=== PATIENT | female | born 2000 | race Caucasian/White ===

== ENCOUNTER 2018-08-21 12:02 | Emergency (ER) | payer OTHER, SELFPAY ==
[2018-08-21 12:07] VITALS: BP 139/94; PULSE 95; RESP 18; TEMP 36.4; O2SAT 100; BMI 27.4
[2018-08-21 13:05] LABS: INR 0.9 (0.9-1.3); Prothrombin Time 10.7 SECONDS (10.1-12.7)
[2018-08-21 13:08] LABS: PTT Partial Thromboplastin Tim 28 SECONDS (26.4-36.2)
[2018-08-21 13:09] LABS: Alanine Aminotransferase 25 IU/L (9-52); Albumin 4.9 g/dL (3.5-5.0); Albumin Globulin Ratio 1.5 (1.0-2.8); Alkaline Phosphatase 73 U/L (38-126); Aspartate Aminotransferase 45 IU/L (14-36); BUN Creatinine Ratio 16.7 (6-22); Bilirubin Total 1.1 mg/dL (0.2-1.3); Blood Urea Nitrogen 10 mg/dL (7-17); Calcium 9.3 mg/dL (8.4-10.2); Carbon Dioxide 24 mmol/L (22-32); Chloride 104 mmol/L (98-107); Estimated Glomerular Filt Rate > 60.0 mL/min (>60); Globulin 3.3 g/dL (1.7-4.1); Glucose 98 mg/dL (70-100); HEMOLYSIS 18 (0-50); Potassium 3.9 mmol/L (3.4-5.1); Sodium 141 mmol/L (137-145); Total Protein 8.2 g/dL (6.3-8.2)
[2018-08-21 13:18] LABS: Add Manual Diff / Slide Review NO; Basophils Absolute Auto 0 /uL (0-100); Basophils Percent Auto 0.3 % (0-2); Eosinophils Absolute Auto 0 /uL (0-450); Eosinophils Percent Auto 0.7 % (2-4); Hematocrit 44.5 % (36-46); Hemoglobin 15.3 g/dL (12.0-16.0); Lymphocytes Absolute Auto 1000 /uL (1100-4500); Lymphocytes Percent Auto 17.2 % (25-40); Mean Corpuscular HGB Conc 34.5 % (30-36); Mean Corpuscular Hemoglobin 30.4 PG (26-34); Mean Corpuscular Volume 88.3 fL (80-100); Monocytes Absolute Auto 300 /uL (0-900); Monocytes Percent Auto 5.9 % (3-14); Neutrophils Absolute Auto 4400 /uL (1500-7000); Neutrophils Percent Auto 75.9 % (50-75); Platelet Count 225 X10^3/uL (150-400); Red Blood Cell Count 5.04 X10^6/uL (4.0-5.2); Red Cell Distribution Width 13.2 % (11.6-14.8); White Blood Cell Count 5.8 X10^3/uL (4.5-11.0)
[2018-08-21 13:35] VITALS: BP 139/80; PULSE 86; RESP 20; O2SAT 97
[2018-08-21 13:43] LABS: RBC Urine None Seen (0-5/HPF)
[2018-08-21 13:45] LABS: Bilirubin Urine UA 1+ (NEGATIVE); Color Urine UA YELLOW; Glucose Urine UA NEGATIVE (Negative); Ketones Urine UA 2+ (NEGATIVE); Leukocyte Esterase Urine UA 1+ (NEGATIVE); Nitrite Urine UA NEGATIVE (Negative); Occult Blood Urine UA NEGATIVE (Negative); Protein Urine UA 1+ (Negative)
[2018-08-21 13:47] LABS: Appearance Urine UA Slightly Cloudy
[2018-08-21 13:53] LABS: Pregnancy Test Urine Negative (Negative)
[2018-08-21 14:08] LABS: Bacteria Urine Few (2-10); Culture Indicated Urine Cult Not Indicated; Mucus Urine 1+ (Negative); Squamous Epithelial Cell Urine 5-10 /HPF (0-5/HPF); Urine Comments CLUE CELLS NOTED; WBC Urine 0-1/HPF (0-5/HPF)
--- NOTE | 2018-08-21 14:15 | ED.GIBLEED ---
HPI - GI Bleed <KASH Payne - Last Filed: 08/21/18 21:29> General Chief complaint: GI Bleed Stated complaint: FREQUENT VOMITING Time Seen by Provider: 08/21/18 13:58 Source: patient Mode of arrival: ambulatory Limitations: no limitations History of Present Illness HPI Narrative: 18-year-old female with a history of alcohol use of 3-5 shots today, presents emergency department today complaining of dark tarry stool and nausea starting this morning. She states she was recently seen at [facility] 3 days ago her vomiting of bright red blood. She had lab tests there and was given Pepcid, she has not taken any NSAIDs and has not drank since 3 days ago. Denies any dizziness, seizures, tremors, abdominal pain, vomiting, syncope, chest pain, shortness of breath, fevers, or chills. She has had nausea that is worse in the morning but gets better after she takes it and strong. Related Data Previous Rx's Medication Instructions Recorded ondansetron 4 mg PO Q8H #7 tab 08/21/18 sucralfate 10 ml PO QID #420 ml 08/21/18 Allergies Allergy/AdvReac Type Severity Reaction Status Date / Time Penicillins AdvReac Hives Verified 08/21/18 12:06 Review of Systems <KASH Payne - Last Filed: 08/21/18 21:29> Review of Systems REVIEW OF SYSTEMS: GENERAL: Denies fever or chills. HENT: No head trauma, hearing loss or sore throat. EYES: No loss of vision, double vision, eye pain, or irritation. CARDIOVASCULAR: No chest pain or syncope. RESPIRATORY: No shortness of breath or cough. GASTROINTESTINAL: Complains of black tarry stools, see HPI. GENITOURINARY: No flank pain or dysuria. MUSCULOSKELETAL: No pain, weakness, or deformities. INTEGUMENTARY: No rash, lesions, or pruritus. NEURO: No numbness, tingling, memory loss, or confusion. PSYCH: No behavior or mood changes. PFSH <KASH Payne - Last Filed: 08/21/18 21:29> Medical History Alcohol abuse (Acute) Social History Smoking Status: Current some day smoker Social History Smoking Status: Current some day smoker Exam <KASH Payne - Last Filed: 08/21/18 21:29> Initial Vital Signs Initial Vital Signs: Vital Signs Temperature 97.5 F L 08/21/18 12:07 Pulse Rate 95 H 08/21/18 12:07 Respiratory Rate 18 08/21/18 12:07 Blood Pressure 139/94 H 08/21/18 12:07 Pulse Oximetry 100 08/21/18 12:07 PHYSICAL EXAMINATION: GENERAL: Well groomed, alert, and cooperative. Answers questions promptly and appropriately. Vital signs noted. HENT: Normocephalic, atraumatic. EYES: PERRLA, EOMIs, conjunctiva pink, sclera white, no periorbital swelling. CARDIOVASCULAR: S1 and S2 sounds normal. Regular rate and rhythm, no murmurs, clicks, or bruits. No pedal edema. RESPIRATORY: Normal respiratory rate, trachea midline, airway patent. No stridor, nasal flaring or accessory muscle use. Lungs are clear in all beach without wheeze, rhonchi, or crackles. GASTROINTESTINAL: Bowel sounds normoactive. Abdomen is soft and non-tender. No organomegaly. MUSCULOSKELETAL: Normal gait and coordination. Equal tone and mass bilaterally. No spinal tenderness or deformities. EXTREMITIES: CMS intact. Moves all extremities. SKIN: Warm, dry, soft, appropriate color for ethnicity. No lesions, rashes, or wounds. NEURO: Alert and Oriented X 3. Good coordination. No ataxia, or sensory deficits, or cognitive issues. PSYCH: Appropriate affect and mood. <Debra Dominguez DO - Last Filed: 08/24/18 18:36> Initial Vital Signs Initial Vital Signs: Vital Signs Temperature 97.5 F L 08/21/18 12:07 Pulse Rate 95 H 08/21/18 12:07 Respiratory Rate 18 08/21/18 12:07 Blood Pressure 139/94 H 08/21/18 12:07 Pulse Oximetry 100 08/21/18 12:07 Course <KASH Payne - Last Filed: 08/21/18 21:29> Course Narrative: Extent this time was spent with patient discussing need for follow-up for colonoscopy and further testing. Patient understood, states that she has an appointment in 2 weeks and plans to keep this. Patient also reported that she has been taking her Pepcid twice a day. Orders Ordered: ED Orders 08/21/18 12:40 Complete Blood Count AUTO DIFF Stat Comprehensive Metabolic Panel Stat Partial Thromboplastin Time Stat Prothrombin Time INR Stat 08/21/18 13:30 Test Urine Stat Urinalysis and Microscopic Stat Consultations Consultation #1: Patient staffed with Dr. Dominguez. Vital Signs - 8 hr 08/21/18 13:35 08/21/18 14:32 08/21/18 15:11 Pulse Rate 86 86 75 Respiratory Rate 20 21 20 Blood Pressure 125/79 Blood Pressure [Right Arm] 139/80 122/81 Pulse Oximetry 97 100 98 <Debra Dominguez DO - Last Filed: 08/24/18 18:36> Orders Ordered: ED Orders 08/21/18 12:40 Complete Blood Count AUTO DIFF Stat Comprehensive Metabolic Panel Stat Partial Thromboplastin Time Stat Prothrombin Time INR Stat 08/21/18 13:30 Test Urine Stat Urinalysis and Microscopic Stat Vital Signs - 8 hr 08/21/18 13:35 08/21/18 14:32 08/21/18 15:11 Pulse Rate 86 86 75 Respiratory Rate 20 21 20 Blood Pressure 125/79 Blood Pressure [Right Arm] 139/80 122/81 Pulse Oximetry 97 100 98 MDM - GI Bleed <KASH Payne - Last Filed: 08/21/18 21:29> Medical Records Attestation: I reviewed the patient's medical records. Lab Data Attestation: I reviewed the patient's lab results. Result diagrams: 08/21/18 12:40 08/21/18 12:40 Lab Results 08/21/18 08/21/18 08/21/18 Range/Units 12:40 12:40 12:40 WBC 5.8 (4.5-11.0) X10^3/uL RBC 5.04 (4.0-5.2) X10^6/uL Hgb 15.3 (12.0-16.0) g/dL Hct 44.5 (36-46) % MCV 88.3 (80-100) fL MCH 30.4 (26-34) PG MCHC 34.5 (30-36) % RDW 13.2 (11.6-14.8) % Plt Count 225 (150-400) X10^3/uL Neut % (Auto) 75.9 H (50-75) % Lymph % (Auto) 17.2 L (25-40) % Rush % (Auto) 5.9 (3-14) % Eos % (Auto) 0.7 L (2-4) % Baso % (Auto) 0.3 (0-2) % Neut # (Auto) 4400 (4046-7442) /uL Lymph # (Auto) 1000 L (5310-0098) /uL Rush # (Auto) 300 (0-900) /uL Eos # (Auto) 0 (0-450) /uL Baso # (Auto) 0 (0-100) /uL PT 10.7 (10.1-12.7) SECONDS INR 0.9 (0.9-1.3) APTT 28 (26.4-36.2) SECONDS Sodium 141 (137-145) mmol/L Potassium 3.9 (3.4-5.1) mmol/L Chloride 104 (98-107) mmol/L Carbon Dioxide 24 (22-32) mmol/L BUN 10 (7-17) mg/dL Creatinine 0.60 (0.52-1.04) mg/dL Estimated GFR > 60.0 (>60) mL/min BUN/Creatinine Ratio 16.7 (6-22) Glucose 98 (70-100) mg/dL Calcium 9.3 (8.4-10.2) mg/dL Total Bilirubin 1.1 (0.2-1.3) mg/dL AST 45 H (14-36) IU/L ALT 25 (9-52) IU/L Alkaline Phosphatase 73 (38-126) U/L Total Protein 8.2 (6.3-8.2) g/dL Albumin 4.9 (3.5-5.0) g/dL Globulin 3.3 (1.7-4.1) g/dL Albumin/Globulin Ratio 1.5 (1.0-2.8) Urine Color Urine Appearance Urine pH (4.5-8.0) Ur Specific [place] (1.000-1.035) Urine Protein (Negative) Urine Glucose (UA) (Negative) g/dL Urine Ketones (NEGATIVE) Urine Occult Blood (Negative) Urine Nitrate (Negative) Urine Bilirubin (NEGATIVE) Urine Urobilinogen (0.2) E.U./dL Ur Leukocyte Esterase (NEGATIVE) Urine RBC (0-5/HPF) Urine WBC (0-5/HPF) Ur Squamous Epith Cells (0-5/HPF) Urine Bacteria (None) Urine Mucus (Negative) Ur Culture Indicated? Micro UA Comment Urine Test (Negative) 08/21/18 08/21/18 Range/Units 13:30 13:30 WBC (4.5-11.0) X10^3/uL RBC (4.0-5.2) X10^6/uL Hgb (12.0-16.0) g/dL Hct (36-46) % MCV (80-100) fL MCH (26-34) PG MCHC (30-36) % RDW (11.6-14.8) % Plt Count (150-400) X10^3/uL Neut % (Auto) (50-75) % Lymph % (Auto) (25-40) % Rush % (Auto) (3-14) % Eos % (Auto) (2-4) % Baso % (Auto) (0-2) % Neut # (Auto) (8007-6712) /uL Lymph # (Auto) (1117-6431) /uL Rush # (Auto) (0-900) /uL Eos # (Auto) (0-450) /uL Baso # (Auto) (0-100) /uL PT (10.1-12.7) SECONDS INR (0.9-1.3) APTT (26.4-36.2) SECONDS Sodium (137-145) mmol/L Potassium (3.4-5.1) mmol/L Chloride (98-107) mmol/L Carbon Dioxide (22-32) mmol/L BUN (7-17) mg/dL Creatinine (0.52-1.04) mg/dL Estimated GFR (>60) mL/min BUN/Creatinine Ratio (6-22) Glucose (70-100) mg/dL Calcium (8.4-10.2) mg/dL Total Bilirubin (0.2-1.3) mg/dL AST (14-36) IU/L ALT (9-52) IU/L Alkaline Phosphatase (38-126) U/L Total Protein (6.3-8.2) g/dL Albumin (3.5-5.0) g/dL Globulin (1.7-4.1) g/dL Albumin/Globulin Ratio (1.0-2.8) Urine Color Yellow Urine Appearance Slightly cloudy Urine pH 7.0 (4.5-8.0) Ur Specific [place] 1.020 (1.000-1.035) Urine Protein 1+ H (Negative) Urine Glucose (UA) Negative (Negative) g/dL Urine Ketones 2+ H (NEGATIVE) Urine Occult Blood Negative (Negative) Urine Nitrate Negative (Negative) Urine Bilirubin 1+ H (NEGATIVE) Urine Urobilinogen 1.0 (0.2) E.U./dL Ur Leukocyte Esterase 1+ H (NEGATIVE) Urine RBC None seen (0-5/HPF) Urine WBC 0-1/hpf (0-5/HPF) Ur Squamous Epith Cells 5-10 /hpf H (0-5/HPF) Urine Bacteria Few (2-10) H (None) Urine Mucus 1+ H (Negative) Ur Culture Indicated? Cult not indicated Micro UA Comment Clue cells noted Urine Test Negative (Negative) MDM Narrative Medical decision making narrative: I suspect that patient's symptoms are caused by a GI bleed, this is evidence by her report 3 days ago via [email or web address] records that states she was vomiting blood as well as her report today that she had black tarry stools. However, patient's labs were non-remarkable 3 days ago as well as non-remarkable today. Therefore, low concern for extreme loss of blood. Patient remains very stable and is able to tolerate food during her ED stay. Patient giving Carafate and ondansetron to help with symptom management. Very strict return precautions were given to patient if increased symptoms occur. Very little concern for alcohol withdrawal as patient has only been drinking 3-5 shots a day for the past 3 months, her map remains within normal limits, she does not exhibit tremors, headaches or confusion, or increased anxiety. <Debra Dominguez, DO - Last Filed: 08/24/18 18:36> Lab Data Lab Results 08/21/18 08/21/18 08/21/18 Range/Units 12:40 12:40 12:40 WBC 5.8 (4.5-11.0) X10^3/uL RBC 5.04 (4.0-5.2) X10^6/uL Hgb 15.3 (12.0-16.0) g/dL Hct 44.5 (36-46) % MCV 88.3 (80-100) fL MCH 30.4 (26-34) PG MCHC 34.5 (30-36) % RDW 13.2 (11.6-14.8) % Plt Count 225 (150-400) X10^3/uL Neut % (Auto) 75.9 H (50-75) % Lymph % (Auto) 17.2 L (25-40) % Rush % (Auto) 5.9 (3-14) % Eos % (Auto) 0.7 L (2-4) % Baso % (Auto) 0.3 (0-2) % Neut # (Auto) 4400 (5623-3015) /uL Lymph # (Auto) 1000 L (6779-1355) /uL Rush # (Auto) 300 (0-900) /uL Eos # (Auto) 0 (0-450) /uL Baso # (Auto) 0 (0-100) /uL PT 10.7 (10.1-12.7) SECONDS INR 0.9 (0.9-1.3) APTT 28 (26.4-36.2) SECONDS Sodium 141 (137-145) mmol/L Potassium 3.9 (3.4-5.1) mmol/L Chloride 104 (98-107) mmol/L Carbon Dioxide 24 (22-32) mmol/L BUN 10 (7-17) mg/dL Creatinine 0.60 (0.52-1.04) mg/dL Estimated GFR > 60.0 (>60) mL/min BUN/Creatinine Ratio 16.7 (6-22) Glucose 98 (70-100) mg/dL Calcium 9.3 (8.4-10.2) mg/dL Total Bilirubin 1.1 (0.2-1.3) mg/dL AST 45 H (14-36) IU/L ALT 25 (9-52) IU/L Alkaline Phosphatase 73 (38-126) U/L Total Protein 8.2 (6.3-8.2) g/dL Albumin 4.9 (3.5-5.0) g/dL Globulin 3.3 (1.7-4.1) g/dL Albumin/Globulin Ratio 1.5 (1.0-2.8) Urine Color Urine Appearance Urine pH (4.5-8.0) Ur Specific [place] (1.000-1.035) Urine Protein (Negative) Urine Glucose (UA) (Negative) g/dL Urine Ketones (NEGATIVE) Urine Occult Blood (Negative) Urine Nitrate (Negative) Urine Bilirubin (NEGATIVE) Urine Urobilinogen (0.2) E.U./dL Ur Leukocyte Esterase (NEGATIVE) Urine RBC (0-5/HPF) Urine WBC (0-5/HPF) Ur Squamous Epith Cells (0-5/HPF) Urine Bacteria (None) Urine Mucus (Negative) Ur Culture Indicated? Micro UA Comment Urine Test (Negative) 08/21/18 08/21/18 Range/Units 13:30 13:30 WBC (4.5-11.0) X10^3/uL RBC (4.0-5.2) X10^6/uL Hgb (12.0-16.0) g/dL Hct (36-46) % MCV (80-100) fL MCH (26-34) PG MCHC (30-36) % RDW (11.6-14.8) % Plt Count (150-400) X10^3/uL Neut % (Auto) (50-75) % Lymph % (Auto) (25-40) % Rush % (Auto) (3-14) % Eos % (Auto) (2-4) % Baso % (Auto) (0-2) % Neut # (Auto) (6036-3482) /uL Lymph # (Auto) (0190-2828) /uL Rush # (Auto) (0-900) /uL Eos # (Auto) (0-450) /uL Baso # (Auto) (0-100) /uL PT (10.1-12.7) SECONDS INR (0.9-1.3) APTT (26.4-36.2) SECONDS Sodium (137-145) mmol/L Potassium (3.4-5.1) mmol/L Chloride (98-107) mmol/L Carbon Dioxide (22-32) mmol/L BUN (7-17) mg/dL Creatinine (0.52-1.04) mg/dL Estimated GFR (>60) mL/min BUN/Creatinine Ratio (6-22) Glucose (70-100) mg/dL Calcium (8.4-10.2) mg/dL Total Bilirubin (0.2-1.3) mg/dL AST (14-36) IU/L ALT (9-52) IU/L Alkaline Phosphatase (38-126) U/L Total Protein (6.3-8.2) g/dL Albumin (3.5-5.0) g/dL Globulin (1.7-4.1) g/dL Albumin/Globulin Ratio (1.0-2.8) Urine Color Yellow Urine Appearance Slightly cloudy Urine pH 7.0 (4.5-8.0) Ur Specific [place] 1.020 (1.000-1.035) Urine Protein 1+ H (Negative) Urine Glucose (UA) Negative (Negative) g/dL Urine Ketones 2+ H (NEGATIVE) Urine Occult Blood Negative (Negative) Urine Nitrate Negative (Negative) Urine Bilirubin 1+ H (NEGATIVE) Urine Urobilinogen 1.0 (0.2) E.U./dL Ur Leukocyte Esterase 1+ H (NEGATIVE) Urine RBC None seen (0-5/HPF) Urine WBC 0-1/hpf (0-5/HPF) Ur Squamous Epith Cells 5-10 /hpf H (0-5/HPF) Urine Bacteria Few (2-10) H (None) Urine Mucus 1+ H (Negative) Ur Culture Indicated? Cult not indicated Micro UA Comment Clue cells noted Urine Test Negative (Negative) Discharge Plan Departure Patient Disposition: Home Clinical Impression: Blood in stool Discharge Date/Time: 08/21/18 15:15 Interventions: ED Discharge Assessment Last Done: 08/21/18 15:11 Instructions: DI for Alcohol Abuse, DI for Gastric Ulcer Activity Restrictions/Additional Instructions: Thank you for entrusting me with your care today. As discussed, your lab work was negative for any concerning changes since your last ER visit. I prescribed you and nausea medication and an additional medication that will help coat your stomach. Please keep your appointment with her primary care provider that you currently has scheduled, discussed further testing such as a colonoscopy. Return to the emergency department if you experience seizures, chest pain, shortness of breath, severe increased fatigue, vomiting blood, large amount of blood in her stools, dizziness, or syncope. Prescriptions: New sucralfate 100 mg/mL suspension 10 ml PO QID Qty: 420 RF: 0 ondansetron 4 mg tablet,disintegrating 4 mg PO Q8H Qty: 7 RF: 0 <Debra Dominguez DO - Last Filed: 08/24/18 18:36> Cosign ED Attending Cosignature Attestation: I was immediately available in the department for consultation. This documentation has been reviewed and I agree with assessment and plan. Supervised by Debra Dominguez DO
--- NOTE | 2018-08-21 14:18 | ED_ITS ---
HPI - GI Bleed <KASH Payne - Last Filed: 08/21/18 21:29> General Chief complaint: GI Bleed Stated complaint: FREQUENT VOMITING Time Seen by Provider: 08/21/18 13:58 Source: patient Mode of arrival: ambulatory Limitations: no limitations History of Present Illness HPI Narrative: 18-year-old female with a history of alcohol use of 3-5 shots today, presents emergency department today complaining of dark tarry stool and nausea starting this morning. She states she was recently seen at [facility] 3 days ago her vomiting of bright red blood. She had lab tests there and was given Pepcid, she has not taken any NSAIDs and has not drank since 3 days ago. Denies any dizziness, seizures, tremors, abdominal pain, vomiting, syncope, chest pain, shortness of breath, fevers, or chills. She has had nausea that is worse in the morning but gets better after she takes it and strong. Related Data Previous Rx's Medication Instructions Recorded ondansetron 4 mg PO Q8H #7 tab 08/21/18 sucralfate 10 ml PO QID #420 ml 08/21/18 Allergies Allergy/AdvReac Type Severity Reaction Status Date / Time Penicillins AdvReac Hives Verified 08/21/18 12:06 Review of Systems <KASH Payne - Last Filed: 08/21/18 21:29> Review of Systems REVIEW OF SYSTEMS: GENERAL: Denies fever or chills. HENT: No head trauma, hearing loss or sore throat. EYES: No loss of vision, double vision, eye pain, or irritation. CARDIOVASCULAR: No chest pain or syncope. RESPIRATORY: No shortness of breath or cough. GASTROINTESTINAL: Complains of black tarry stools, see HPI. GENITOURINARY: No flank pain or dysuria. MUSCULOSKELETAL: No pain, weakness, or deformities. INTEGUMENTARY: No rash, lesions, or pruritus. NEURO: No numbness, tingling, memory loss, or confusion. PSYCH: No behavior or mood changes. PFSH <KASH Payne - Last Filed: 08/21/18 21:29> Medical History Alcohol abuse (Acute) Social History Smoking Status: Current some day smoker Social History Smoking Status: Current some day smoker Exam <KASH Payne - Last Filed: 08/21/18 21:29> Initial Vital Signs Initial Vital Signs: Vital Signs Temperature 97.5 F L 08/21/18 12:07 Pulse Rate 95 H 08/21/18 12:07 Respiratory Rate 18 08/21/18 12:07 Blood Pressure 139/94 H 08/21/18 12:07 Pulse Oximetry 100 08/21/18 12:07 PHYSICAL EXAMINATION: GENERAL: Well groomed, alert, and cooperative. Answers questions promptly and appropriately. Vital signs noted. HENT: Normocephalic, atraumatic. EYES: PERRLA, EOMIs, conjunctiva pink, sclera white, no periorbital swelling. CARDIOVASCULAR: S1 and S2 sounds normal. Regular rate and rhythm, no murmurs, clicks, or bruits. No pedal edema. RESPIRATORY: Normal respiratory rate, trachea midline, airway patent. No stridor, nasal flaring or accessory muscle use. Lungs are clear in all beach without wheeze, rhonchi, or crackles. GASTROINTESTINAL: Bowel sounds normoactive. Abdomen is soft and non-tender. No organomegaly. MUSCULOSKELETAL: Normal gait and coordination. Equal tone and mass bilaterally. No spinal tenderness or deformities. EXTREMITIES: CMS intact. Moves all extremities. SKIN: Warm, dry, soft, appropriate color for ethnicity. No lesions, rashes, or wounds. NEURO: Alert and Oriented X 3. Good coordination. No ataxia, or sensory deficits, or cognitive issues. PSYCH: Appropriate affect and mood. <Debra Dominguez DO - Last Filed: 08/24/18 18:36> Initial Vital Signs Initial Vital Signs: Vital Signs Temperature 97.5 F L 08/21/18 12:07 Pulse Rate 95 H 08/21/18 12:07 Respiratory Rate 18 08/21/18 12:07 Blood Pressure 139/94 H 08/21/18 12:07 Pulse Oximetry 100 08/21/18 12:07 Course <KASH Payne - Last Filed: 08/21/18 21:29> Course Narrative: Extent this time was spent with patient discussing need for follow-up for colonoscopy and further testing. Patient understood, states that she has an appointment in 2 weeks and plans to keep this. Patient also reported that she has been taking her Pepcid twice a day. Orders Ordered: ED Orders 08/21/18 12:40 Complete Blood Count AUTO DIFF Stat Comprehensive Metabolic Panel Stat Partial Thromboplastin Time Stat Prothrombin Time INR Stat 08/21/18 13:30 Test Urine Stat Urinalysis and Microscopic Stat Consultations Consultation #1: Patient staffed with Dr. Dominguez. Vital Signs - 8 hr 08/21/18 13:35 08/21/18 14:32 08/21/18 15:11 Pulse Rate 86 86 75 Respiratory Rate 20 21 20 Blood Pressure 125/79 Blood Pressure [Right Arm] 139/80 122/81 Pulse Oximetry 97 100 98 <Debra Dominguez DO - Last Filed: 08/24/18 18:36> Orders Ordered: ED Orders 08/21/18 12:40 Complete Blood Count AUTO DIFF Stat Comprehensive Metabolic Panel Stat Partial Thromboplastin Time Stat Prothrombin Time INR Stat 08/21/18 13:30 Test Urine Stat Urinalysis and Microscopic Stat Vital Signs - 8 hr 08/21/18 13:35 08/21/18 14:32 08/21/18 15:11 Pulse Rate 86 86 75 Respiratory Rate 20 21 20 Blood Pressure 125/79 Blood Pressure [Right Arm] 139/80 122/81 Pulse Oximetry 97 100 98 MDM - GI Bleed <KASH Payne - Last Filed: 08/21/18 21:29> Medical Records Attestation: I reviewed the patient's medical records. Lab Data Attestation: I reviewed the patient's lab results. Result diagrams: 08/21/18 12:40 08/21/18 12:40 Lab Results 08/21/18 08/21/18 08/21/18 Range/Units 12:40 12:40 12:40 WBC 5.8 (4.5-11.0) X10^3/uL RBC 5.04 (4.0-5.2) X10^6/uL Hgb 15.3 (12.0-16.0) g/dL Hct 44.5 (36-46) % MCV 88.3 (80-100) fL MCH 30.4 (26-34) PG MCHC 34.5 (30-36) % RDW 13.2 (11.6-14.8) % Plt Count 225 (150-400) X10^3/uL Neut % (Auto) 75.9 H (50-75) % Lymph % (Auto) 17.2 L (25-40) % Barron % (Auto) 5.9 (3-14) % Eos % (Auto) 0.7 L (2-4) % Baso % (Auto) 0.3 (0-2) % Neut # (Auto) 4400 (0041-8144) /uL Lymph # (Auto) 1000 L (3231-0697) /uL Barron # (Auto) 300 (0-900) /uL Eos # (Auto) 0 (0-450) /uL Baso # (Auto) 0 (0-100) /uL PT 10.7 (10.1-12.7) SECONDS INR 0.9 (0.9-1.3) APTT 28 (26.4-36.2) SECONDS Sodium 141 (137-145) mmol/L Potassium 3.9 (3.4-5.1) mmol/L Chloride 104 (98-107) mmol/L Carbon Dioxide 24 (22-32) mmol/L BUN 10 (7-17) mg/dL Creatinine 0.60 (0.52-1.04) mg/dL Estimated GFR > 60.0 (>60) mL/min BUN/Creatinine Ratio 16.7 (6-22) Glucose 98 (70-100) mg/dL Calcium 9.3 (8.4-10.2) mg/dL Total Bilirubin 1.1 (0.2-1.3) mg/dL AST 45 H (14-36) IU/L ALT 25 (9-52) IU/L Alkaline Phosphatase 73 (38-126) U/L Total Protein 8.2 (6.3-8.2) g/dL Albumin 4.9 (3.5-5.0) g/dL Globulin 3.3 (1.7-4.1) g/dL Albumin/Globulin Ratio 1.5 (1.0-2.8) Urine Color Urine Appearance Urine pH (4.5-8.0) Ur Specific [place] (1.000-1.035) Urine Protein (Negative) Urine Glucose (UA) (Negative) g/dL Urine Ketones (NEGATIVE) Urine Occult Blood (Negative) Urine Nitrate (Negative) Urine Bilirubin (NEGATIVE) Urine Urobilinogen (0.2) E.U./dL Ur Leukocyte Esterase (NEGATIVE) Urine RBC (0-5/HPF) Urine WBC (0-5/HPF) Ur Squamous Epith Cells (0-5/HPF) Urine Bacteria (None) Urine Mucus (Negative) Ur Culture Indicated? Micro UA Comment Urine Test (Negative) 08/21/18 08/21/18 Range/Units 13:30 13:30 WBC (4.5-11.0) X10^3/uL RBC (4.0-5.2) X10^6/uL Hgb (12.0-16.0) g/dL Hct (36-46) % MCV (80-100) fL MCH (26-34) PG MCHC (30-36) % RDW (11.6-14.8) % Plt Count (150-400) X10^3/uL Neut % (Auto) (50-75) % Lymph % (Auto) (25-40) % Barron % (Auto) (3-14) % Eos % (Auto) (2-4) % Baso % (Auto) (0-2) % Neut # (Auto) (4479-1811) /uL Lymph # (Auto) (6815-5297) /uL Barron # (Auto) (0-900) /uL Eos # (Auto) (0-450) /uL Baso # (Auto) (0-100) /uL PT (10.1-12.7) SECONDS INR (0.9-1.3) APTT (26.4-36.2) SECONDS Sodium (137-145) mmol/L Potassium (3.4-5.1) mmol/L Chloride (98-107) mmol/L Carbon Dioxide (22-32) mmol/L BUN (7-17) mg/dL Creatinine (0.52-1.04) mg/dL Estimated GFR (>60) mL/min BUN/Creatinine Ratio (6-22) Glucose (70-100) mg/dL Calcium (8.4-10.2) mg/dL Total Bilirubin (0.2-1.3) mg/dL AST (14-36) IU/L ALT (9-52) IU/L Alkaline Phosphatase (38-126) U/L Total Protein (6.3-8.2) g/dL Albumin (3.5-5.0) g/dL Globulin (1.7-4.1) g/dL Albumin/Globulin Ratio (1.0-2.8) Urine Color Yellow Urine Appearance Slightly cloudy Urine pH 7.0 (4.5-8.0) Ur Specific [place] 1.020 (1.000-1.035) Urine Protein 1+ H (Negative) Urine Glucose (UA) Negative (Negative) g/dL Urine Ketones 2+ H (NEGATIVE) Urine Occult Blood Negative (Negative) Urine Nitrate Negative (Negative) Urine Bilirubin 1+ H (NEGATIVE) Urine Urobilinogen 1.0 (0.2) E.U./dL Ur Leukocyte Esterase 1+ H (NEGATIVE) Urine RBC None seen (0-5/HPF) Urine WBC 0-1/hpf (0-5/HPF) Ur Squamous Epith Cells 5-10 /hpf H (0-5/HPF) Urine Bacteria Few (2-10) H (None) Urine Mucus 1+ H (Negative) Ur Culture Indicated? Cult not indicated Micro UA Comment Clue cells noted Urine Test Negative (Negative) MDM Narrative Medical decision making narrative: I suspect that patient's symptoms are caused by a GI bleed, this is evidence by her report 3 days ago via [facility] records that states she was vomiting blood as well as her report today that she had black tarry stools. However, patient's labs were non-remarkable 3 days ago as well as non-remarkable today. Therefore, low concern for extreme loss of blood. Patient remains very stable and is able to tolerate food during her ED stay. Patient giving Carafate and ondansetron to help with symptom management. Very strict return precautions were given to patient if increased symptoms occur. Very little concern for alcohol withdrawal as patient has only been drinking 3-5 shots a day for the past 3 months, her map remains within normal limits, she does not exhibit tremors, headaches or confusion, or increased anxiety. <Debra Dominguez, DO - Last Filed: 08/24/18 18:36> Lab Data Lab Results 08/21/18 08/21/18 08/21/18 Range/Units 12:40 12:40 12:40 WBC 5.8 (4.5-11.0) X10^3/uL RBC 5.04 (4.0-5.2) X10^6/uL Hgb 15.3 (12.0-16.0) g/dL Hct 44.5 (36-46) % MCV 88.3 (80-100) fL MCH 30.4 (26-34) PG MCHC 34.5 (30-36) % RDW 13.2 (11.6-14.8) % Plt Count 225 (150-400) X10^3/uL Neut % (Auto) 75.9 H (50-75) % Lymph % (Auto) 17.2 L (25-40) % Barron % (Auto) 5.9 (3-14) % Eos % (Auto) 0.7 L (2-4) % Baso % (Auto) 0.3 (0-2) % Neut # (Auto) 4400 (0726-6385) /uL Lymph # (Auto) 1000 L (6736-8915) /uL Barron # (Auto) 300 (0-900) /uL Eos # (Auto) 0 (0-450) /uL Baso # (Auto) 0 (0-100) /uL PT 10.7 (10.1-12.7) SECONDS INR 0.9 (0.9-1.3) APTT 28 (26.4-36.2) SECONDS Sodium 141 (137-145) mmol/L Potassium 3.9 (3.4-5.1) mmol/L Chloride 104 (98-107) mmol/L Carbon Dioxide 24 (22-32) mmol/L BUN 10 (7-17) mg/dL Creatinine 0.60 (0.52-1.04) mg/dL Estimated GFR > 60.0 (>60) mL/min BUN/Creatinine Ratio 16.7 (6-22) Glucose 98 (70-100) mg/dL Calcium 9.3 (8.4-10.2) mg/dL Total Bilirubin 1.1 (0.2-1.3) mg/dL AST 45 H (14-36) IU/L ALT 25 (9-52) IU/L Alkaline Phosphatase 73 (38-126) U/L Total Protein 8.2 (6.3-8.2) g/dL Albumin 4.9 (3.5-5.0) g/dL Globulin 3.3 (1.7-4.1) g/dL Albumin/Globulin Ratio 1.5 (1.0-2.8) Urine Color Urine Appearance Urine pH (4.5-8.0) Ur Specific [place] (1.000-1.035) Urine Protein (Negative) Urine Glucose (UA) (Negative) g/dL Urine Ketones (NEGATIVE) Urine Occult Blood (Negative) Urine Nitrate (Negative) Urine Bilirubin (NEGATIVE) Urine Urobilinogen (0.2) E.U./dL Ur Leukocyte Esterase (NEGATIVE) Urine RBC (0-5/HPF) Urine WBC (0-5/HPF) Ur Squamous Epith Cells (0-5/HPF) Urine Bacteria (None) Urine Mucus (Negative) Ur Culture Indicated? Micro UA Comment Urine Test (Negative) 08/21/18 08/21/18 Range/Units 13:30 13:30 WBC (4.5-11.0) X10^3/uL RBC (4.0-5.2) X10^6/uL Hgb (12.0-16.0) g/dL Hct (36-46) % MCV (80-100) fL MCH (26-34) PG MCHC (30-36) % RDW (11.6-14.8) % Plt Count (150-400) X10^3/uL Neut % (Auto) (50-75) % Lymph % (Auto) (25-40) % Barron % (Auto) (3-14) % Eos % (Auto) (2-4) % Baso % (Auto) (0-2) % Neut # (Auto) (6764-4142) /uL Lymph # (Auto) (6027-7322) /uL Barron # (Auto) (0-900) /uL Eos # (Auto) (0-450) /uL Baso # (Auto) (0-100) /uL PT (10.1-12.7) SECONDS INR (0.9-1.3) APTT (26.4-36.2) SECONDS Sodium (137-145) mmol/L Potassium (3.4-5.1) mmol/L Chloride (98-107) mmol/L Carbon Dioxide (22-32) mmol/L BUN (7-17) mg/dL Creatinine (0.52-1.04) mg/dL Estimated GFR (>60) mL/min BUN/Creatinine Ratio (6-22) Glucose (70-100) mg/dL Calcium (8.4-10.2) mg/dL Total Bilirubin (0.2-1.3) mg/dL AST (14-36) IU/L ALT (9-52) IU/L Alkaline Phosphatase (38-126) U/L Total Protein (6.3-8.2) g/dL Albumin (3.5-5.0) g/dL Globulin (1.7-4.1) g/dL Albumin/Globulin Ratio (1.0-2.8) Urine Color Yellow Urine Appearance Slightly cloudy Urine pH 7.0 (4.5-8.0) Ur Specific [place] 1.020 (1.000-1.035) Urine Protein 1+ H (Negative) Urine Glucose (UA) Negative (Negative) g/dL Urine Ketones 2+ H (NEGATIVE) Urine Occult Blood Negative (Negative) Urine Nitrate Negative (Negative) Urine Bilirubin 1+ H (NEGATIVE) Urine Urobilinogen 1.0 (0.2) E.U./dL Ur Leukocyte Esterase 1+ H (NEGATIVE) Urine RBC None seen (0-5/HPF) Urine WBC 0-1/hpf (0-5/HPF) Ur Squamous Epith Cells 5-10 /hpf H (0-5/HPF) Urine Bacteria Few (2-10) H (None) Urine Mucus 1+ H (Negative) Ur Culture Indicated? Cult not indicated Micro UA Comment Clue cells noted Urine Test Negative (Negative) Discharge Plan Departure Patient Disposition: Home Clinical Impression: Blood in stool Discharge Date/Time: 08/21/18 15:15 Interventions: ED Discharge Assessment Last Done: 08/21/18 15:11 Instructions: DI for Alcohol Abuse, DI for Gastric Ulcer Activity Restrictions/Additional Instructions: Thank you for entrusting me with your care today. As discussed, your lab work was negative for any concerning changes since your last ER visit. I prescribed you and nausea medication and an additional medication that will help coat your stomach. Please keep your appointment with her primary care provider that you currently has scheduled, discussed further testing such as a colonoscopy. Return to the emergency department if you experience seizures, chest pain, shortness of breath, severe increased fatigue, vomiting blood, large amount of blood in her stools, dizziness, or syncope. Prescriptions: New sucralfate 100 mg/mL suspension 10 ml PO QID Qty: 420 RF: 0 ondansetron 4 mg tablet,disintegrating 4 mg PO Q8H Qty: 7 RF: 0 <Debra Dominguez DO - Last Filed: 08/24/18 18:36> Cosign ED Attending Cosignature Attestation: I was immediately available in the department for consultation. This documentation has been reviewed and I agree with assessment and plan. Supervised by Debra Dominguez DO
[2018-08-21 14:32] VITALS: BP 122/81; PULSE 86; RESP 21; O2SAT 100
[2018-08-21 15:11] VITALS: BP 125/79; PULSE 75; RESP 20; O2SAT 98
== END 2018-08-21 15:15 | disposition home or self-care (01) ==
PROVIDERS: Emergency Medicine; Emergency Provider Nurse Practitioner
DX: K92.1 Melena (principal); K92.2 Gastrointestinal hemorrhage, unspecified
CPT/HCPCS: 36415; 80053; 81001; 81025; 85025; 85610; 85730; 93005; 99282; 99283